=== PATIENT | male | born 1975 | race Hispanic/Latino ===

== ENCOUNTER 2022-03-13 20:19 | Inpatient (IN) | payer OTHER, SELFPAY ==
[2022-03-13] MEDS ORDERED: Bacitracin 1 PK ONE (20:52)
[2022-03-13] MEDS ORDERED: Lidocaine 1% w/Epinephrine 1:100K 20 ML VIAL ONE (20:52)
[2022-03-13 22:13] LABS: SARS-CoV-2 NAA Rapid Test Not Detected (NotDetected)
[2022-03-13] MEDS ORDERED: Dextrose 50% Abboject 50 ML SYRINGE SLOW IVP PRN (22:32)
[2022-03-13] MEDS ORDERED: hydrALAZINE 20 MG/ML VIAL SLOW IVP PRN (22:32)
[2022-03-13] MEDS ORDERED: Ondansetron PF 4 MG/2 ML Vial IVP PRN (22:32)
[2022-03-13] MEDS ORDERED: Ondansetron ODT 4 MG TAB PO PRN (22:32)
[2022-03-13] MEDS ORDERED: Dextrose 5% in Water 1,000 ML IV PRN (22:32)
[2022-03-13] MEDS ORDERED: Cyclobenzaprine 10 MG TAB PO PRN (22:43)
[2022-03-13] MEDS ORDERED: traMADol HCl 50 MG TAB PO PRN (22:43)
[2022-03-13] MEDS ORDERED: Sodium Chloride 0.9% 1,000 ML IV SCH (23:30)
[2022-03-13] MEDS: traMADol HCl 50 MG TAB PO PRN (23:36)
[2022-03-13] MEDS: Acetaminophen 325 MG TAB PO SCH (23:36)
[2022-03-14 00:12] VITALS: BMI 30.4
[2022-03-14 00:44] LABS: Troponin I 0.261 ng/mL (< 0.028)
[2022-03-14 04:33] LABS: #Lymphocytes 1.4 thou/uL (1.20-3.40); #Monocytes 0.7 thou/uL (0.11-0.59); #Neutrophils 7.8 thou/uL (1.40-6.50); %Basophils 0.3 % (0.0-1.0); %Eosinophils 0.1 % (0.0-10.0); %Lymphocytes 13.9 % (21.0-51.0); %Monocytes 7.3 % (0.0-10.0); %Neutrophils 78.5 % (42.0-75.0); Hemoglobin 15.6 g/dL (14.0-18.0); Mean Corpuscular Hemoglobin 34.6 pg (27.0-31.0); Mean Corpuscular Volume 96.2 fL (78.0-98.0); Mean Platelet Volume 7.9 fL (7.4-10.4); Platelet Count 199 thou/uL (130-400); RBC Distribution Width 12.3 % (11.5-14.5); Red Blood Cell (RBC) Count 4.51 mill/uL (4.70-6.10); White Blood Cell (WBC) Count 9.9 thou/uL (4.8-10.8)
[2022-03-14 04:56] LABS: Anion Gap 15 mmol/L (10-20); BUN (Urea Nitrogen) 10 mg/dL (8.9-20.6); Calc. Creatinine Clearance 148 mL/min (70-130); Calcium 8.8 mg/dL (7.8-10.44); Carbon Dioxide 20 mmol/L (22-29); Chloride 108 mmol/L (98-107); Glucose 135 mg/dL (70-105); Potassium 4.2 mmol/L (3.5-5.1); Sodium 139 mmol/L (136-145)
[2022-03-14 05:00] LABS: Troponin I 0.227 ng/mL (< 0.028)
[2022-03-14] MEDS: Acetaminophen 325 MG TAB PO SCH (05:42)
[2022-03-14] MEDS: traMADol HCl 50 MG TAB PO PRN (05:42)
[2022-03-14] MEDS ORDERED: Morphine 2 MG/ML VIAL SLOW IVP PRN (07:09)
[2022-03-14] MEDS ORDERED: Morphine 4 MG/ML VIAL SLOW IVP PRN ×2 (07:09→12:11)
[2022-03-14 07:33] LABS: Magnesium 1.9 mg/dL (1.6-2.6); Phosphorus 3.3 mg/dL (2.3-4.7)
[2022-03-14] MEDS: Sodium Chloride 0.9% 1,000 ML IV SCH ×2 (08:50→15:37)
[2022-03-14] MEDS ORDERED: Pantoprazole 40 MG VIAL IVP SCH (09:00)
[2022-03-14] MEDS ORDERED: Polyethylene Glycol 3350 17 GM Packet PO SCH (09:00)
[2022-03-14] MEDS ORDERED: Senokot S 8.6-50 MG TAB PO SCH (09:00)
[2022-03-14] MEDS ORDERED: Famotidine 20 MG TAB PO SCH (09:00)
[2022-03-14] MEDS ORDERED: Cyclobenzaprine 10 MG TAB PO PRN (12:11)
[2022-03-14] MEDS: Ketorolac Tromethamine 30 MG/ML VIAL IVP SCH ×2 (13:09→18:15)
[2022-03-14] MEDS: Acetaminophen 500 MG TAB PO SCH ×2 (13:11→18:16)
[2022-03-14] MEDS: Gabapentin 300 MG CAP PO SCH ×2 (15:36→20:59)
[2022-03-14] MEDS: traMADol HCl 50 MG TAB PO SCH (18:15)
[2022-03-14] MEDS: Enoxaparin Sodium 30 MG/0.3 ML SYRINGE SC SCH (20:58)
[2022-03-14] MEDS: Senokot S 8.6-50 MG TAB PO SCH (20:59)
[2022-03-15] MEDS: Ketorolac Tromethamine 30 MG/ML VIAL IVP SCH ×4 (00:02→17:42)
[2022-03-15] MEDS: traMADol HCl 50 MG TAB PO SCH ×4 (00:02→17:40)
[2022-03-15] MEDS: Acetaminophen 500 MG TAB PO SCH ×4 (02:19→17:38)
[2022-03-15 05:13] LABS: #Basophils 0.1 thou/uL (0.0-0.2); #Eosinphils 0.2 thou/uL (0.0-0.7); #Lymphocytes 2.1 thou/uL (1.20-3.40); #Monocytes 0.8 thou/uL (0.11-0.59); #Neutrophils 5.1 thou/uL (1.40-6.50); %Basophils 0.7 % (0.0-1.0); %Eosinophils 2.1 % (0.0-10.0); %Lymphocytes 26.1 % (21.0-51.0); %Monocytes 9.2 % (0.0-10.0); Hemoglobin 14.2 g/dL (14.0-18.0); Mean Corpuscular HGB CONC 34.1 g/dL (32.0-36.0); Mean Corpuscular Hemoglobin 32.9 pg (27.0-31.0); Mean Corpuscular Volume 96.5 fL (78.0-98.0); Mean Platelet Volume 7.8 fL (7.4-10.4); Platelet Count 176 thou/uL (130-400); RBC Distribution Width 12.1 % (11.5-14.5); Red Blood Cell (RBC) Count 4.31 mill/uL (4.70-6.10); White Blood Cell (WBC) Count 8.2 thou/uL (4.8-10.8)
[2022-03-15 05:20] LABS: Anion Gap 12 mmol/L (10-20); BUN (Urea Nitrogen) 12 mg/dL (8.9-20.6); Calc. Creatinine Clearance 164 mL/min (70-130); Calcium 8.6 mg/dL (7.8-10.44); Carbon Dioxide 22 mmol/L (22-29); Chloride 106 mmol/L (98-107); Glucose 112 mg/dL (70-105); Magnesium 2.1 mg/dL (1.6-2.6); Phosphorus 2.2 mg/dL (2.3-4.7); Potassium 3.9 mmol/L (3.5-5.1); Sodium 136 mmol/L (136-145)
[2022-03-15] MEDS ORDERED: Sodium Phosphate 30 MMOL in Sodium Chloride 0.9% 250 ML 250 ML IVPB SCH (07:15)
[2022-03-15 07:28] LABS: Amphetamine Not Detected (NotDetected); Barbiturates Screen Not Detected (NotDetected); Benzodiazepine Screen Not Detected (NotDetected); Cocaine Metabolite Screen Not Detected (NotDetected); Methadone Not Detected (NotDetected); Methamphetamine Not Detected (NotDetected); Opiate Screen Not Detected (NotDetected); Oxycodone Screen Not Detected (NotDetected); Phencyclidine (PCP) Not Detected (NotDetected); THC/Cannabinoid Screen Not Detected (NotDetected); Tricyclic Screen Not Detected (NotDetected)
[2022-03-15] MEDS: Enoxaparin Sodium 30 MG/0.3 ML SYRINGE SC SCH ×2 (09:11→20:54)
[2022-03-15] MEDS: Senokot S 8.6-50 MG TAB PO SCH ×2 (09:11→20:54)
[2022-03-15] MEDS: Polyethylene Glycol 3350 17 GM Packet PO SCH (09:11)
[2022-03-15] MEDS: Gabapentin 300 MG CAP PO SCH ×3 (09:11→20:53)
[2022-03-16] MEDS: traMADol HCl 50 MG TAB PO SCH ×3 (01:33→11:26)
[2022-03-16] MEDS: Acetaminophen 500 MG TAB PO SCH ×3 (01:34→13:47)
[2022-03-16] MEDS: Ketorolac Tromethamine 30 MG/ML VIAL IVP SCH ×3 (01:34→11:28)
[2022-03-16] MEDS: Gabapentin 300 MG CAP PO SCH ×2 (08:17→15:02)
[2022-03-16] MEDS: Enoxaparin Sodium 30 MG/0.3 ML SYRINGE SC SCH (08:17)
[2022-03-16] MEDS: Senokot S 8.6-50 MG TAB PO SCH (08:18)
[2022-03-16] MEDS: Polyethylene Glycol 3350 17 GM Packet PO SCH (08:18)
[2022-03-16 11:52] VITALS: TEMP 98.9
[2022-03-16 16:12] VITALS: BP 163/90
== END 2022-03-16 16:10 | disposition home or self-care (01) | DRG 200 ==
LOC: ERS 20:19 → 2NO 22:31 → OBSVTOIN 03-14 07:12 → SURG B 03-15 10:56
PROVIDERS: ADMIT Specialist; ATTEND Specialist
DX: S27.0XXA Traumatic pneumothorax, initial encounter (principal); S22.43XA Multiple fractures of ribs, bilateral, initial encounter for closed fracture; S27.322A Contusion of lung, bilateral, initial encounter; F10.129 Alcohol abuse with intoxication, unspecified; S01.81XA Laceration without foreign body of other part of head, initial encounter; S41.012A Laceration without foreign body of left shoulder, initial encounter; S21.212A Laceration without foreign body of left back wall of thorax without penetration into thoracic cavity, initial encounter; S06.0X0A Concussion without loss of consciousness, initial encounter; R40.2412 Glasgow coma scale score 13-15, at arrival to emergency department; T79.7XXA Traumatic subcutaneous emphysema, initial encounter; V44.5XXA Car driver injured in collision with heavy transport vehicle or bus in traffic accident, initial encounter; S42.132A Displaced fracture of coracoid process, left shoulder, initial encounter for closed fracture; Z20.822 Contact with and (suspected) exposure to COVID-19
CPT/HCPCS: 36415; 71045; 74220; 80048; 80306; 83735; 84100; 85025; 93005; 93306; C9113; G0378; G0390; J1650; J1885; J7050; U0002